=== PATIENT | female | born 1950 | race Caucasian/White ===

== ENCOUNTER 2020-12-09 17:52 | Emergency (ER) | payer MEDICARE, BC ==
[~2020-12-09] VITALS: Ht 157.5 cm; Wt 47.7 kg
[2020-12-09] MEDS ORDERED: FURO-152 PO (18:03)
[2020-12-09] MEDS ORDERED: PREM3 PO (18:03)
[2020-12-09] MEDS ORDERED: PANT-31 PO (18:04)
[2020-12-09] MEDS ORDERED: GABA-1181 PO (18:04)
[2020-12-09] MEDS ORDERED: TOPI25 PO (18:05)
[2020-12-09] MEDS ORDERED: RIVA20TA PO (18:06)
[2020-12-09] MEDS ORDERED: BACL5TAB PO (18:07)
[2020-12-09] MEDS ORDERED: TraMADol HCL 50 MG TABLET PO ONE ×2 (20:30→20:45)
[2020-12-09 20:40] VITALS: BP 138/81
== END 2020-12-09 20:41 | disposition home or self-care (01) ==
LOC: EMS 17:54
DX: M85.852 Other specified disorders of bone density and structure, left thigh (principal); K21.9 Gastro-esophageal reflux disease without esophagitis; I51.9 Heart disease, unspecified; Z79.899 Other long term (current) drug therapy
CPT/HCPCS: 73503; 93971; 99284